=== PATIENT | female | born 1995 | race Caucasian/White ===

== ENCOUNTER → 2025-01-01 13:30 | Outpatient (REF) | payer BC, SELFPAY | LOC: PNTC 13:30 | PROVIDERS: ATTENDING PHYSICIAN Obstetrics & Gynecology | DX: O99.210 Obesity complicating pregnancy, unspecified trimester (principal) | CPT/HCPCS: 76805 ==

== ENCOUNTER → 2025-01-27 08:31 | Outpatient (REF) | payer BC, SELFPAY | LOC: PNTC 08:31 | PROVIDERS: ATTENDING PHYSICIAN Obstetrics & Gynecology | DX: O99.210 Obesity complicating pregnancy, unspecified trimester (principal) | CPT/HCPCS: 76811; 76817 ==

== ENCOUNTER → 2025-05-26 09:01 | Outpatient (REF) | payer BC, SELFPAY | LOC: PNTC 09:01 | PROVIDERS: ATTENDING PHYSICIAN Student in an Organized Health Care Education/Training Program | DX: O36.63X0 Maternal care for excessive fetal growth, third trimester, not applicable or unspecified (principal); O99.213 Obesity complicating pregnancy, third trimester | CPT/HCPCS: 76816 ==

== ENCOUNTER 2025-06-08 08:06 | Inpatient (IN) | payer BC, SELFPAY ==
[2025-06-08 08:14] VITALS: BP 157/93; BMI 36.8
[2025-06-08] MEDS: LR 1000 IV ×2 (09:11→16:37)
[2025-06-08] MEDS: ZOFRAN 4 MG IV (09:12)
[2025-06-08] MEDS: PEPCID 20 MG IV ×2 (09:12→18:54)
[2025-06-08 09:23] LABS: Hematocrit 34.1 % (37.0-47.0); Hemoglobin 11.8 g/dL (12.0-16.0); Mean Corp Hgb Conc. 34.6 g/dL (33.0-37.0); Mean Corpuscular Volume 84.8 fL (81.0-99.0); Nucleated Red Blood Cells % 0 %; Platelet Count 277 10^3/uL (130-400); Red Cell Dist. Width 13.4 % (11.5-14.5)
[2025-06-08 09:30] LABS: AST (SGOT) 31 U/L (14-36); Albumin 3.6 g/dl (3.5-5.0); Alkaline Phosphatase 206 U/L (38-126); Blood Urea Nitrogen 5 mg/dl (7-17); Calcium 9.1 mg/dl (8.4-10.2); Carbon Dioxide 16 mmol/L (22-30); Chloride 107 mmol/L (98-107); Estimated Creatinine Clearance > 125 ml/min; Glucose 111 mg/dl (70-99); Potassium 3.9 mmol/L (3.5-5.1); Sodium 134 mmol/L (135-145); Total Protein 6.5 g/dl (6.3-8.2); eGFR > 60.00
[2025-06-08 09:46] LABS: ALT (SGPT) 45 U/L (0-35)
[2025-06-08] MEDS: PITOCIN 30 UNITS/NSS 500 ML IV (10:01)
[2025-06-08] MEDS: SUBLIMAZE 100 MCG EPIDURAL (15:16)
[2025-06-08] MEDS: FENTANYL/BUPIVACAINE 100 EPIDURAL (15:17)
[2025-06-08] MEDS: MOTRIN 600 MG PO (23:40)
[2025-06-08] MEDS: PRENATAL PLUS PO (23:40)
[2025-06-09 05:22] LABS: Hematocrit 28.5 % (37.0-47.0); Hemoglobin 9.9 g/dL (12.0-16.0); Mean Corp Hgb Conc. 34.7 g/dL (33.0-37.0); Mean Corpuscular Volume 87.4 fL (81.0-99.0); Platelet Count 223 10^3/uL (130-400); Red Cell Dist. Width 13.4 % (11.5-14.5)
[2025-06-09 05:44] LABS: ALT (SGPT) 30 U/L (0-35); AST (SGOT) 31 U/L (14-36); Albumin 2.7 g/dl (3.5-5.0); Alkaline Phosphatase 143 U/L (38-126); Blood Urea Nitrogen 7 mg/dl (7-17); Calcium 8.7 mg/dl (8.4-10.2); Carbon Dioxide 21 mmol/L (22-30); Chloride 109 mmol/L (98-107); Estimated Creatinine Clearance > 125 ml/min; Glucose 113 mg/dl (70-99); Potassium 4.4 mmol/L (3.5-5.1); Sodium 133 mmol/L (135-145); Total Protein 5.2 g/dl (6.3-8.2); eGFR > 60.00
[2025-06-09] MEDS: COLACE 100 MG PO ×2 (07:37→19:40)
[2025-06-09] MEDS: FEOSOL 325 MG PO (07:37)
[2025-06-09] MEDS: PRENATAL PLUS 1 TABLET PO (07:37)
[2025-06-09] MEDS: MOTRIN 600 MG PO ×3 (07:41→20:34)
[2025-06-09] MEDS: TYLENOL 650 MG PO ×2 (14:20→20:34)
[2025-06-09 14:48] LABS: Syphilis/T. pallidum Ab Reflex Negative (Negative)
[2025-06-09] MEDS: SENOKOT 17.2 MG PO (16:11)
[2025-06-10] MEDS: TYLENOL 650 MG PO ×2 (02:45→09:59)
[2025-06-10] MEDS: MOTRIN 600 MG PO ×2 (02:45→09:59)
--- NOTE | 2025-06-10 02:51 | DOWNTIME ---
There was a Browsy Client [employer] Downtime on 06/10/2025 from 0100 to 06/10/2025 at 0215. Downtime documentation of patient's care, including medication administrations, has been reconciled in the electronic record per guidelines. Refer to the
patient's paper chart under the miscellaneous tab to see printed paper medication records and downtime forms.
[2025-06-10] MEDS: COLACE 100 MG PO (08:04)
[2025-06-10] MEDS: FEOSOL 325 MG PO (08:04)
[2025-06-10] MEDS: PRENATAL PLUS 1 TABLET PO (08:04)
--- NOTE | 2025-06-10 09:47 | CM ---
CM reviewed chart, consult received for post screening score of 10. Mother, father, and baby girl, Maria Del Rosario, seen bedside. Mother and father congratulated, report this is their first child. Mother reports additional family members live in the
home, report having good support at home. Mother reports all supplies needed for child, Director Dental Services: TRINIDAD Jeffers. Mother aware of PPD score, offered VN and additional resources, mother denies at this time. CM will continue to follow for all
discharge planning needs.
Plan; home no needs
== END 2025-06-10 14:13 | disposition home or self-care (01) | DRG 807 ==
LOC: LDRP 08:06
PROVIDERS: ADMITTING PHYSICIAN Student in an Organized Health Care Education/Training Program
PROC: 10907ZC Drainage of Amniotic Fluid, Therapeutic from Products of Conception, Via Natural or Artificial Opening (ICD-10-PCS; 2025-06-08)
PROC: 0KQM0ZZ Repair Perineum Muscle, Open Approach (ICD-10-PCS; 2025-06-08)
PROC: 3E033VJ Introduction of Other Hormone into Peripheral Vein, Percutaneous Approach (ICD-10-PCS; 2025-06-08)
PROC: 10E0XZZ Delivery of Products of Conception, External Approach (ICD-10-PCS; 2025-06-08)
DX: O36.63X0 Maternal care for excessive fetal growth, third trimester, not applicable or unspecified (principal); Z37.0 Single live birth; Z3A.39 39 weeks gestation of pregnancy; O70.1 Second degree perineal laceration during delivery; O76 Abnormality in fetal heart rate and rhythm complicating labor and delivery; Z91.018 Allergy to other foods
CPT/HCPCS: 36415; 80053; 82570; 84156; 85025; 85027; 86780; 86850; 86900; 86901; 88307